=== PATIENT | male | born 1960 | race Caucasian/White ===

== ENCOUNTER 2020-12-31 21:39 | Inpatient (IN) | payer BC ==
[~2020-12-31] VITALS: Ht 170.2 cm; Wt 127.1 kg
[2020-12-31 22:33] LABS: BASOPHILS % (AUTO) 0.3 % (0-1); EOSINOPHILS # (AUTO) 0.1 X10'3 (0-0.9); EOSINOPHILS % (AUTO) 1.4 % (0-6); HEMATOCRIT 35.2 % (42.0-52.0); HEMOGLOBIN 12.5 g/dl (14.0-17.9); LYMPHOCYTES # (AUTO) 1.4 X10'3 (1.1-4.8); LYMPHOCYTES % (AUTO) 15.6 % (21-51); MEAN CORPUSCULAR HEMOGLOBIN 32.1 PG (27.0-31.0); MEAN CORPUSCULAR HGB CONC 35.6 g/dL (33.0-36.5); MEAN CORPUSCULAR VOLUME 90.3 FL (78-98); MEAN PLATELET VOLUME 7.4 FL (7.4-10.4); MONOCYTES % (AUTO) 11.2 % (2-12); NEUTROPHILS # (AUTO) 6.5 X10'3 (1.8-7.7); NEUTROPHILS % (AUTO) 71.5 % (42-75); PLATELET COUNT 216 X10'3 (140-440); RED CELL DISTRIBUTION WIDTH 13.3 % (11.5-14.5); WHITE BLOOD COUNT 9.1 X10'3 (4.5-11.0)
[2020-12-31 22:51] LABS: ALANINE AMINOTRANSFERASE 32 U/L (12-78); ALBUMIN 4.1 G/DL (3.4-5.0); ALBUMIN/GLOBULIN RATIO 1.1 (1.1-1.5); ALKALINE PHOSPHATASE 51 IU/L (46-116); ANION GAP 9 (8-16); ASPARTATE AMINO TRANSFERASE 17 U/L (10-37); BILIRUBIN,TOTAL 0.3 MG/DL (0.1-1.0); BLOOD UREA NITROGEN 15 MG/DL (7-18); BUN/CREATININE RATIO 16.7 (5.4-32.0); CALCIUM 8.8 MG/DL (8.5-10.1); CHLORIDE 86 MMOL/L (99-107); GLUCOSE 87 MG/DL (70-104); POTASSIUM 4.8 MMOL/L (3.5-5.1); TOTAL CARBON DIOXIDE 22.8 MMOL/L (24-32); TOTAL PROTEIN 7.8 G/DL (6.4-8.2); TROPONIN I < 0.04 NG/ML (0.0-0.05); eGFR 86 ML/MIN
[2020-12-31 22:59] LABS: SODIUM 118 MMOL/L (135-145)
[2020-12-31] MEDS ORDERED: PREG100C PO (23:25)
[2020-12-31] MEDS ORDERED: SPIR25TA5 (23:25)
[2020-12-31] MEDS ORDERED: ASCO100T10 (23:25)
[2020-12-31] MEDS ORDERED: SELE200C PO (23:25)
[2020-12-31] MEDS ORDERED: ASCO100T12 PO (23:25)
[2020-12-31] MEDS ORDERED: NEBI20TA2 PO (23:25)
[2020-12-31] MEDS ORDERED: OMEG-79 PO (23:25)
[2020-12-31] MEDS ORDERED: LYSI500T11 PO (23:25)
[2020-12-31] MEDS ORDERED: TELM80TA9 PO (23:25)
[2020-12-31] MEDS ORDERED: PANT40TA54 PO (23:25)
[2021-01-01] VITALS (9 sets, daily range): BP systolic 95–134; BP diastolic 45–74
[2021-01-01] MEDS ORDERED: potassium Cl 20 mEq SR tablet PO PRN ×2 (00:20)
[2021-01-01] MEDS ORDERED: HYDROcodone/acetaminophen 5mg/325mg tablet PO PRN (00:20)
[2021-01-01] MEDS ORDERED: potassium Cl 40MEQ/1/2NS 520ml 520 ML IV PRN ×2 (00:20)
[2021-01-01] MEDS ORDERED: mag hydrox/Alum hydrox/simeth 30ml oral suspension PO PRN (00:20)
[2021-01-01] MEDS ORDERED: acetaminophen 325mg tablet PO PRN (00:20)
[2021-01-01] MEDS: normal saline 1000ml 1,000 ML IV SCH ×2 (00:20→05:12)
[2021-01-01] MEDS ORDERED: ondansetron/PF 4mg/2ml inj IV PRN (00:20)
[2021-01-01] MEDS ORDERED: magnesium hydroxide 30ml (MOM) UD suspension PO PRN (00:20)
[2021-01-01] MEDS ORDERED: metoprolol tartrate 1mg/ml inj IV PRN (00:25)
[2021-01-01] MEDS ORDERED: thiamine inj. 100 MG in normal saline 100ml IV soln 100 ML IV ONE (00:25)
[2021-01-01] MEDS ORDERED: aminophylline 250mg/10ml inj. IV PRN (00:25)
[2021-01-01] MEDS ORDERED: LORazepam 2 mg/ml vial IV PRN (00:25)
[2021-01-01] MEDS ORDERED: regadenoson 0.4mg/5ml syringe IV PRN (00:25)
[2021-01-01] MEDS ORDERED: nitroGLYCERIN 0.4mg SUBLingual tab SL PRN (00:25)
[2021-01-01] MEDS ORDERED: thiamine 100mg/ml 2ml inj. IV ONE (00:30)
--- NOTE | 2021-01-01 00:37 | NUR ---
PT MOVED FROM 16 TO 1 AND PLACED ON HOSPITAL BED FOR COMFORT
[2021-01-01 00:54] LABS: HEMOGLOBIN A1C 5.5 % (4.5-6.2)
[2021-01-01 05:04] LABS: ALANINE AMINOTRANSFERASE 31 U/L (12-78); ALBUMIN 3.9 G/DL (3.4-5.0); ALBUMIN/GLOBULIN RATIO 1.1 (1.1-1.5); ALKALINE PHOSPHATASE 49 IU/L (46-116); ANION GAP 11 (8-16); ASPARTATE AMINO TRANSFERASE 13 U/L (10-37); BILIRUBIN,TOTAL 0.5 MG/DL (0.1-1.0); BLOOD UREA NITROGEN 15 MG/DL (7-18); CHLORIDE 90 MMOL/L (99-107); CREATININE 0.79 MG/DL (0.60-1.10); GLUCOSE 80 MG/DL (70-104); POTASSIUM 4.7 MMOL/L (3.5-5.1); SODIUM 124 MMOL/L (135-145); TOTAL CARBON DIOXIDE 23.1 MMOL/L (24-32); TOTAL PROTEIN 7.4 G/DL (6.4-8.2); eGFR > 90 ML/MIN
--- NOTE | 2021-01-01 06:23 | NUR ---
Problems reprioritized. Patient report given, questions answered & plan of care reviewed with ADAMARIS Mc.
--- NOTE | 2021-01-01 06:33 | NUR ---
Patient in room PCU 3014. I have received report from ADAMARIS Palomino and had the opportunity to ask questions and assume patient care.
[2021-01-01] MEDS ORDERED: losartan 50mg tablet PO SCH (08:00)
[2021-01-01] MEDS ORDERED: heparin, porcine 5000 units/ml vial SQ SCH (08:00)
[2021-01-01] MEDS ORDERED: K and/or MAG REPLACEMENT MC SCH (08:00)
[2021-01-01] MEDS ORDERED: metoprolol tartrate 50mg tablet PO SCH (08:00)
[2021-01-01] MEDS ORDERED: furosemide 40mg/4ml inj IV ONE (08:15)
--- NOTE | 2021-01-01 13:36 | NUR ---
notified. PAGER ID: [phone] MESSAGE: Re: Robbie Edward. [id number]. Stress test is resulted. thanks. Jesusita. [id number].
--- NOTE | 2021-01-01 17:40 | NUR ---
Patient stable for discharge per md orders. iv discontinued with cannula intact. vital signs stable. Strict follow up and return precautions gone over with patient. patient belongings gathered. 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 No new prescriptions. Patient ambulated to lobby with assistance of SAP ABAP DEVELOPER and was seen leaving premises in private vehicle driven by friend.
[2021-01-01] MEDS ORDERED: furosemide 40mg/4ml inj IV SCH (20:00)
[2021-01-03] MEDS ORDERED: LORazepam 2 mg/ml vial IV PRN (00:25)
[2021-01-03] MEDS ORDERED: LORazepam 1 MG tablet PO PRN (00:25)
[2021-01-05] MEDS ORDERED: LORazepam 1 MG tablet PO PRN (00:25)
== END 2021-01-01 17:08 | disposition home or self-care (01) | DRG 311 ==
LOC: ER 21:39 → ED HOLD 01-01 00:18 → PCU 3S 01-01 04:20
PROVIDERS: ADMIT Internal Medicine; ATTEND Family Medicine
PROC: 4A02XM4 Measurement of Cardiac Total Activity, External Approach (ICD-10-PCS; principal; 2021-01-01)
PROC: 3E073KZ Introduction of Other Diagnostic Substance into Coronary Artery, Percutaneous Approach (ICD-10-PCS; 2021-01-01)
DX: I20.9 Angina pectoris, unspecified (principal); E87.1 Hypo-osmolality and hyponatremia; Z68.41 Body mass index [BMI] 40.0-44.9, adult; E66.01 Morbid (severe) obesity due to excess calories; F41.9 Anxiety disorder, unspecified; I10 Essential (primary) hypertension; K29.70 Gastritis, unspecified, without bleeding; M17.12 Unilateral primary osteoarthritis, left knee; M25.561 Pain in right knee; T50.2X5A Adverse effect of carbonic-anhydrase inhibitors, benzothiadiazides and other diuretics, initial encounter; Y92.89 Other specified places as the place of occurrence of the external cause; Z88.0 Allergy status to penicillin; Z79.899 Other long term (current) drug therapy
CPT/HCPCS: 36415; 71045; 78452; 80053; 83036; 83880; 84484; 85025; 87081; 93005; 93017; 93306; 99285; A9500; G0378; J1644; J1940; J2785; J3411; J7030

== ENCOUNTER 2024-10-30 06:59 | Day surgery (SDC) | payer MEDICARE, BC ==
[2024-10-25 11:41] LABS: ALBUMIN 3.8 G/DL (3.4-5.0); ALBUMIN/GLOBULIN RATIO 1.1 (1.1-1.5); ALKALINE PHOSPHATASE 83 IU/L (46-116); BLOOD UREA NITROGEN 30 MG/DL (7-18); CALCIUM 8.9 MG/DL (8.5-10.1); CHLORIDE 105 MMOL/L (99-107); CREATININE 1.11 MG/DL (0.60-1.10); PRE OP ALT 27 U/L (30-65); PRE OP ANION GAP 8 (8-16); PRE OP AST 21 U/L (10-37); PRE OP BILIRUB, TOTAL 0.3 MG/DL (0.0-1.0); PRE OP GLUCOSE 107 MG/DL (70-104); PRE OP POTASSIUM 4.3 MMOL/L (3.4-5.1); PRE OP SODIUM 141 MMOL/L (135-145); TOTAL CARBON DIOXIDE 28.2 MMOL/L (24-32); TOTAL PROTEIN 7.3 G/DL (6.4-8.2); eGFR 66 ML/MIN
[2024-10-25 11:46] LABS: BASOPHILS % (AUTO) 0.4 % (0-1); EOSINOPHILS # (AUTO) 0.1 X10'3 (0-0.9); EOSINOPHILS % (AUTO) 1.2 % (0-6); LYMPHOCYTES % (AUTO) 28.8 % (21-51); MEAN CORPUSCULAR HEMOGLOBIN 27.6 PG (27.0-31.0); MEAN CORPUSCULAR HGB CONC 33.9 g/dL (33.0-36.5); MEAN CORPUSCULAR VOLUME 81.5 FL (78-98); MEAN PLATELET VOLUME 9.2 FL (7.4-10.4); MONOCYTES # (AUTO) 0.8 X10'3 (0-0.9); MONOCYTES % (AUTO) 11.7 % (2-12); NEUTROPHILS # (AUTO) 3.9 X10'3 (1.8-7.7); NEUTROPHILS % (AUTO) 57.9 % (42-75); PRE OP HEMOGLOBIN 13.6 g/dL (14.0-17.9); PRE OP PLATELET COUNT 213 X10'3 (140-440); PRE OP WHITE BLOOD COUNT 6.8 10'3 (4.8-10.8); RED BLOOD COUNT 4.91 X10'6 (4.70-6.10); RED CELL DISTRIBUTION WIDTH 15.1 % (11.5-14.5)
[~2024-10-30] VITALS: Ht 170.2 cm; Wt 135.0 kg
[2024-10-30] VITALS (14 sets, daily range): BP systolic 97–143; BP diastolic 41–71; PULSE 47–55; RESP 8–19; TEMP 98; O2SAT 96–98
[~2024-10-30 06:59] MED LIST: ASCO-134 PO; ATEN25TA PO; CHOL100062 PO; LYSI500T11 PO; OMEG-79 PO; PANT40TA54 PO; PREG100C PO; SELE200C PO; TELM80TA9 PO; [UNRECOGNIZED DRUG - CODE] PO
[2024-10-30] MEDS: DOCUMENT DATE & TIME OF BETA-BLOCKER PO ONE (07:38)
[2024-10-30] MEDS: clindamycin-Cleocin 900mg/D5W 50 ML IV ONE (07:43)
[2024-10-30] MEDS: famotidine 20mg tablet PO ONE (07:43)
[2024-10-30] MEDS: ringers solution, lacted 1,000 ML IV SCH (07:43)
[2024-10-30] MEDS ORDERED: ringers solution, lacted 1,000 ML IV SCH (08:10)
[2024-10-30] MEDS ORDERED: HYDROmorphone/PF 0.2 MG/ML SYRINGE IV PRN (08:10)
[2024-10-30] MEDS ORDERED: labetalol 20mg/4ml (5mg/ml) syringe IV PRN (08:10)
[2024-10-30] MEDS ORDERED: hydrALAZINE 20mg/ml inj. IV PRN (08:10)
[2024-10-30] MEDS ORDERED: ondansetron/PF 4mg/2ml inj IV PRN (08:10)
[2024-10-30] MEDS ORDERED: meperidine/PF 25mg/ml syringe IV PRN (08:10)
[2024-10-30] MEDS ORDERED: proCHLORperazine 10 MG/2 ml inj IV PRN (08:10)
[2024-10-30] MEDS ORDERED: LIDOcaine 2% (20mg/ml) 5ml vial ONE (09:15)
[2024-10-30] MEDS ORDERED: BUPIVAcaine/PF 2.5mg/ml (0.25%) 10ml vial ONE (09:15)
[2024-10-30] MEDS ORDERED: fentaNYL/PF 50MCG/1 ML 2ML syringe ONE (09:31)
[2024-10-30] MEDS ORDERED: LIDOcaine 0.5% (5mg/ml) 50ml vial ONE (09:42)
[2024-10-30] MEDS ORDERED: propofol inj 20 ML IV ONE ×2 (09:42→10:10)
[2024-10-30] MEDS ORDERED: midazolam 1 mg/ML 2ml injection ONE (09:42)
[2024-10-30] MEDS: acetaminophen 1,000mg/100ml IV 100 ML IV PRN (10:29)
[2024-10-30] MEDS: morphine 4 MG/ML inj SYRINge IV PRN (10:30)
[2024-10-30] MEDS: HYDROcodone/acetaminophen 10/325mg tab PO STA (10:59)
[2024-10-30] MEDS: morphine 2 MG/ML inj. syringe IV PRN (10:59)
--- NOTE | 2024-10-30 11:15 | OPERATIVE REPORT ---
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 Surgery is indicated to improve function. Risks and benefits were discussed with the patient. Some of the risks of this type of procedure include incomplete relief of pain. Instability. Dislocation and implant failure. He agrees to proceed. He was brought to the operating room where the block was given along with the antibiotics. The arm was prepped and draped in usual manner. An incision was made dorsally over the 3rd MCP joint and the tendon splitting incision was made followed by excision of the capsule. Sagittal saw was used to remove the base of the proximal phalanx as well as the head of the metacarpal to the level of the collateral origin. Collaterals were not excised. Broaching was done starting with the phalanx up to size 60 and then subsequently done on the metacarpal. Trial implant was placed and it was a little overstuff so some extra shortening was done followed by returned to the broaches. Final implant was then placed and it was reduced and held in a good place without overstuffing. The incision was irrigated and the tendon was repaired using FiberWire suture and the skin was closed with Prolene. Marcaine was then injected and a sterile dressing was applied along with a plaster splint holding the middle ring and small fingers relatively extended and proximally the splint went to the forearm. The tourniquet was released the hand perfused well and the patient was taken to the recovery room in stable condition. REESE ORTIZ Jr., MD Oct 30, 2024 11:14
[2024-10-30] MEDS: HYDROmorphone/PF 0.2 MG/ML SYRINGE IV PRN (11:18)
== END 2024-10-30 12:14 | disposition home or self-care (01) ==
LOC: PAS 06:59
PROVIDERS: ATTEND Orthopaedic Surgery Hand Surgery
DX: M19.041 Primary osteoarthritis, right hand (principal); I10 Essential (primary) hypertension; G47.33 Obstructive sleep apnea (adult) (pediatric); Z88.0 Allergy status to penicillin; Z79.899 Other long term (current) drug therapy; Z98.890 Other specified postprocedural states; Z88.8 Allergy status to other drugs, medicaments and biological substances; M19.011 Primary osteoarthritis, right shoulder; M19.072 Primary osteoarthritis, left ankle and foot; M17.11 Unilateral primary osteoarthritis, right knee
CPT/HCPCS: 26531; 36415; 80053; 82948; 85025; A4215; A4618; A6449; A7000; J0131; J1171; J2003; J2250; J2270; J2704; J3010; J3490; J7030; J7120; L8630; Z7506; Z7508; Z7512; Z7610